=== PATIENT | female | born 1990 | race Caucasian/White ===

== ENCOUNTER 2025-01-24 15:03 | Emergency (ER) | payer MEDICARE, SELFPAY ==
--- OUTSIDE RECORDS SUMMARY | 2024-12-17 00:30 | XMS_ITS | Encounter Summary ---
Author Organization [facility] er Address [address] [place] [id number] Care Team Providers Care Supply Coordinator Name Role Phone None, Pcp Primary Care Provider Unavailabl e Reason for Visit * Reason Comments Fall Head Injury Encounter Details Date Type Department Care Team (Late st Contact Info) Description 12/17/2024 12:30 AM CDT - 12/17/2024 1:00 AM CDT Emergency [facility] Emergency Room [address] [place] [id number] Kvng Mensah MD [address] [place] [address] [id number] Closed head injury, initial encounter (Primary Dx) Discharge Disposition: Home or Self Care Social History Tobacco Use Types Packs/Day Years Used Date Smoking Tobacco: Never Smokeless Tobacco: Never Alcohol Use Standard Drinks/Week Comments Yes 30 (1 standard drink = 0.6 oz pure alcohol) 2 months ago started drinking daily PHQ-2 Answer Date Recorded PHQ-9 Total Score 0 12/03/2024 Comments No Sex and Gender Information Value Date Recorded Sex Assigned at Not on file Legal Sex Female 2:33 PM CDT Gender Identity Not on file Sexual Orientation Not on file documented as of this encounter Last Filed Vital Signs Vital Sign Reading Time Taken Comments Blood Pressure 117/76 12/17/2024 12:23 AM CDT Pulse 80 12/17/2024 12:23 AM CDT Temperature 37.2 C (99 F) 12/17/2024 12:23 AM CDT Respiratory Rate 16 12/17/2024 12:23 AM CDT Oxygen Saturation 99% 12/17/2024 12:23 AM CDT Inhaled Oxygen Concentration - - Weight 68.6 kg (151 lb 3.8 oz) 12/17/2024 12:23 AM CDT Height - - Body Mass Index 28.58 12/08/2024 6:31 PM CDT documented in this encounter Discharge Instructions * Discharge Instructions* Kvng Mensah MD - 12/17/2024 12:55 AM CDT If you develop any new weakness, numbness, or confusion make sure to seek emergent care to be reevaluated. At this time recommend you get plenty of rest. * Attachments The following attachments cannot be sent through Care Everywhere. * Head Injury Adult Ibsm-lg-Chai (Panamanian) documented in this encounter Medications at Time of Discharge albuterol HFA (PROVENTIL HFA;VENTOLIN HFA) 108 (90 Base) MCG/ACT inhaler Inhale 2 puffs cyclobenzaprine (FLEXERIL) 10 MG tablet Take 1 tablet (10 mg total) by mouth 07/24/2024 escitalopram (LEXAPRO) 10 MG tablet Take 1 tablet (10 mg total) by mouth 04/14/2024 Lurasidone HCl 60 MG tablet Take 60 mg by mouth 10/28/2024 nystatin (MYCOSTATIN) 640435 UNIT/GM powder Apply topically 04/26/2024 ondansetron ODT (ZOFRAN-ODT) 4 MG dispersible tablet Take 1 tablet (4 mg total) by mouth 09/20/2024 OXcarbazepine (TRILEPTAL) 150 MG tablet Take 1 tablet (150 mg total) by mouth 10/28/2024 Semaglutide, 1 MG/DOSE,-Diabetes (Ozempic, 1 MG/DOSE,) 4 MG/3ML solution pen-injector Inject under the skin senna-docusate (PERICOLACE) 8.6-50 MG per tablet Take 1 tablet by mouth traZODone (DESYREL) 50 MG tablet Take 1 tablet (50 mg total) by mouth 10/28/2024 triamcinolone (KENALOG) 0.1 % cream Apply 1 Application topically 03/06/2024 valACYclovir (VALTREX) 1 g tablet Take 1 tablet (1,000 mg total) by mouth 03/08/2024 documented as of this encounter ED Notes * Abeba Morris RN - 12/17/2024 12:26 AM CDT 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 She held onto the railing but swung around and hit her head on the cement wall of the facility. Patient reports that this happened at 1400 and she had slurred speech and a headache for 4 to 5 hours after hitting her head. She reports no LOC. Historically, she suffered a TBI in 2021. * Kvng Mensah MD - 12/16/2024 11:43 PM CDT HPI Chief Complaint Patient presents with ??? Fall ??? Head Injury HPI Monica Ogden is a 35-year-old female with a history of a traumatic brain injury who presents emerged from today for a head injury. She was going to work today when she was walking to work and she stepped in some grass that was wetand then she was walking down the stairs and she slipped. She grabbed onto the railing. In the swung her around and she hit her head against the wall. She did not fall down and go down many steps of stairs. She did not lose consciousness. She had a headache after that and then she had some changes in her speech as how she described it as well as a few episodes of vomiting and she was seeing some spots in her vision. This lasted for about 4 to 5 hours. She currently does not have any symptoms and she is feeling much better. She is coming here because she is filing for [employer]. She denies any altered mental status. She is not on any blood thinners. She otherwise has no other high risk factors for intracranial hemorrhage. Patient History Patient History Allergies Allergen Reactions ??? Aripiprazole Rash, Swelling and Unknown Other Reaction(s): Rash, Swelling/Edema ??? Lamotrigine Nausea And Vomiting, Rash and Swelling Other Reaction(s): Edema, GI intolerance, Unknown Other Reaction(s): Rash, Swelling/Edema ??? Miconazole Swelling, Rash and Unknown Other Reaction(s): Rash, Swelling/Edema ??? Sertraline Anxiety, Hallucinations and Other (see comments) Other Reaction(s): Agitation Mom reports she became psychotic on zoloft Anxiety, hallucinations ??? Tioconazole Hallucinations Past Medical History: Diagnosis Date ??? Depression ??? Suicidal behavior with attempted self-injury (HCC) Past Surgical History: Procedure Laterality Date ??? HYSTERECTOMY ??? SLEEVE GASTROPLASTY 2022 ??? TUBAL LIGATION 2016 No family history on file. Social History Tobacco Use ??? Smoking status: Never ??? Smokeless tobacco: Never Vaping Use ??? Vaping status: Every Day ??? Substances: THC Substance Use Topics ??? Alcohol use: Yes Alcohol/week: 30.0 standard drinks of alcohol Types: 30 Shots of liquor per week Comment: 2 months ago started drinking daily ??? Drug use: Yes Types: Marijuana Comment: Smoked more than usual today and yesterday Physical Exam ED Triage Vitals [12/17/24 0023] Temp Heart Rate Resp BP 37.2 ??C (99 ??F) 80 16 117/76 SpO2 Temp Source Heart Rate Source Patient Position 99 % Temporal Monitor Sitting BP Location FiO2 (%) Weight Right arm -- 68.6 kg (151 lb 3.8 oz) Body mass index is 28.58 kg/m??. Physical Exam Vitals and nursing note reviewed. Constitutional: General: She is not in acute distress. Appearance: Normal appearance. HENT: Head: Normocephalic. Nose: Nose normal. Mouth/Throat: Mouth: Mucous membranes are moist. Eyes: Pupils: Pupils are equal, round, and reactive to light. Cardiovascular: Rate and Rhythm: Normal rate. Pulmonary: Effort: Pulmonary effort is normal. Musculoskeletal: Cervical back: Normal range of motion. Skin: General: Skin is warm and dry. Neurological: General: No focal deficit present. Mental Status: She is alert and oriented to person, place, and time. Cranial Nerves: Cranial nerves 2-12 are intact. Sensory: Sensation is intact. Motor: Motor function is intact. Coordination: Coordination is intact. Gait: Gait is intact. Psychiatric: Mood and Affect: Mood normal. Behavior: Behavior normal. Behavior is cooperative. Thought Content: Thought content normal. Judgment: Judgment normal. Trevor Coma Scale Score: 15 Procedures Labs Reviewed - No data to display ED Course & MDM Patient is a 34-year-old female who presents to the emerged from today with complaints of a head injury. She does have a history of TBI. On examination her neurologic examination is unremarkable. Shedid have some concerning symptoms with some vomiting as well as a headache and she did note some slurred speech but does have a history of TBI. We did some shared decision-making about getting a CT scan of the head or not. We discussed the risks of missing a intracranial hemorrhage. This include worsening deficits and could lead to or serious injury. She is aware of this. I do think it is less likely as she hit her head almost 11 hours ago and she is feeling much better at this time. Her main reason for coming in [facility] was to have workmen's comp. At this time I do not think any additional workup is needed and she is otherwise well-appearing and with request to go home. I think this is reasonable. Patient was discharged home with strict return precautions that if any new symptoms occur such as new weakness, numbness, tingling, or neurologic deficits then she will come back to [facility] from and for reevaluation Medical Decision Making Follow Up No follow-up provider specified. Patient's Medications New Prescriptions No medications on file Previous Medications ALBUTEROL HFA (PROVENTIL HFA;VENTOLIN HFA) 108 (90 BASE) MCG/ACT INHALER Inhale 2 puffs CYCLOBENZAPRINE (FLEXERIL) 10 MG TABLET Take 1 tablet (10 mg total) by mouth ESCITALOPRAM (LEXAPRO) 10 MG TABLET Take 1 tablet (10 mg total) by mouth LURASIDONE HCL 60 MG TABLET Take 60 mg by mouth NYSTATIN (MYCOSTATIN) 999544 UNIT/GM POWDER Apply topically ONDANSETRON ODT (ZOFRAN-ODT) 4 MG DISPERSIBLE TABLET Take 1 tablet (4 mg total) by mouth OXCARBAZEPINE (TRILEPTAL) 150 MG TABLET Take 1 tablet (150 mg total) by mouth SEMAGLUTIDE, 1 MG/DOSE,-DIABETES (OZEMPIC, 1 MG/DOSE,) 4 MG/3ML SOLUTION PEN- INJECTOR Inject under the skin SENNA-DOCUSATE (PERICOLACE) 8.6-50 MG PER TABLET Take 1 tablet by mouth TRAZODONE (DESYREL) 50 MG TABLET Take 1 tablet (50 mg total) by mouth TRIAMCINOLONE (KENALOG) 0.1 % CREAM Apply 1 Application topically VALACYCLOVIR (VALTREX) 1 G TABLET Take 1 tablet (1,000 mg total) by mouth Modified Medications No medications on file Discontinued Medications No medications on file Discharge Instructions None ED COURSE and CLINICAL IMPRESSION Clinical Impressions as of 12/17/2453 Closed head injury, initial encounter Disposition: Data Unavailable Kvng Mensah MD 12/17/2452 documented in this encounter Plan of Treatment Not on file documented as of this encounter Visit Diagnoses Diagnosis Closed head injury, initial encounter- Primary documented in this encounter Care Teams Supply Coordinator Relationship Specialty Start Date End Date None, Pcp [address] [place] [id number] PCP - General Seed Expert 12/03/24 documented as of this encounter
[2025-01-24 15:31] VITALS: BP 103/69; PULSE 77; RESP 16; TEMP 36.9; O2SAT 100; BMI 29.3
--- NOTE | 2025-01-24 16:08 | ED.ALLEREA ---
HPI - Allergic Reaction General Date Seen: 01/24/25 Chief complaint: Allergic Reaction Stated complaint: Swollen hands Time Seen by Provider: 01/24/25 16:07 Source: patient and RN notes reviewed Mode of arrival: ambulatory Limitations: no limitations History of Present Illness HPI narrative: Monica is a very pleasant 34-year-old female with history of gastric sleeve who comes to the emergency room for evaluation of a swelling of her face, arms and hands. Patient noted to have had laser tattoo removal yesterday. She notes this was at 1400 hours and by 1800 hours she had a lot of swelling and redness around the tattoos that were targeted. She is very worried that she actually has an infection. Notes that she did have 2 different spots as she has a cat and did have some drainage from 1 of those areas. She has not had fever or chills. She denies difficulty swallowing or difficulty breathing. She did not want to take Benadryl because it makes her sleepy. 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 She feels like the areas of concern are very warm to the touch. States that she cannot take ibuprofen secondary to her gastric sleeve. Related Data Home Medications ?Medication ?Instructions ?Recorded ?Confirmed lurasidone 20 mg tablet (Latuda) 20 mg PO DAILY 01/24/25 01/24/25 oxcarbazepine 150 mg tablet 150 mg PO DAILY 01/24/25 01/24/25 trazodone 50 mg tablet 50 mg PO DAILY 01/24/25 01/24/25 Previous Rx's ?Medication ?Instructions ?Recorded cephalexin 500 mg capsule 500 mg PO TID #15 caps 01/24/25 Allergies Allergy/AdvReac Type Severity Reaction Status Date / Time sertraline Allergy Unknown Verified 01/24/25 15:26 Review of Systems Status of ROS Reports: 6 or more systems reviewed and unremarkable except as noted in History and below [facility] Social History Smoking Status: Never smoker How often do you have a drink containing alcohol: never AUDIT-C Alcohol total score: 0 Non-prescribed substance use: marijuana (any form) Exam Narrative: Exam Narrative: Alert and oriented. Very well-spoken. I do not note any significant facial swelling. Lips are without edema. Speech is normal. No respiratory distress. Examination of the arms and hands do show surrounding erythema of the targeted tattoos. The erythema is absent between the attached to sit and absent at the tattoos not targeted by the laser. Mildly warm to the touch. I do not note any evidence of compartment syndrome. Patient is able to flex and extend fingers without difficulty. The edema on the back of the left hand is greater than the right. Const: Vital Signs, click to edit/add: Vital Signs - 24 hr 01/24/25 15:31 Temperature 98.5 F Pulse Rate [Pulse Oximeter] 77 Respiratory Rate 16 Blood Pressure [Ri ght Upper Arm] 103/69 Pulse Oximetry 100 Oxygen Delivery Me thod Room Air Documenting provider has reviewed patient's vital signs: yes Course Course ED Course: Differential diagnosis includes but is not limited to laser reaction, infection, compartment syndrome, necrotizing fasciitis. At this time given the absence of erythema around the tattoos that were not targeted, lack of fever, ability to move hands without difficult., no firmness noted on the volar surface of the arms, I do think we can rule out compartment syndrome and necrotizing fasciitis. I do think this most likely represents a laser reaction. Vital Signs Vital signs: Initial Vital Signs Temperature 98.5 F 01/24/25 15:31 Temperature Source Temporal Artery Scan 01/24/25 15:31 Pulse Rate 77 01/24/25 15:31 Pulse Rhythm Regular 01/24/25 15:31 Pulse Strength 3+ Normal 01/24/25 15:31 Respiratory Rate 16 01/24/25 15:31 Blood Pressure 103/69 01/24/25 15:31 Blood Pressure Mean 80 01/24/25 15:31 Blood Pressure Position Sitting 01/24/25 15:31 Pulse Oximetry 100 01/24/25 15:31 Oxygen Delivery Method Room Air 01/24/25 15:31 Vital Signs Temperature 98.5 F 01/24/25 15:31 Pulse Rate 77 01/24/25 15:31 Respiratory Rate 16 01/24/25 15:31 Blood Pressure 103/69 01/24/25 15:31 Pulse Oximetry 100 01/24/25 15:31 Oxygen Delivery Method Room Air 01/24/25 15:31 Temperature 98.5 F 01/24/25 15:31 Pulse Rate 77 01/24/25 15:31 Respiratory Rate 16 01/24/25 15:31 Blood Pressure 103/69 01/24/25 15:31 Pulse Oximetry 100 01/24/25 15:31 Oxygen Delivery Method Room Air 01/24/25 15:31 MDM - Allergic Reaction MDM Narrative Medical decision making narrative: 1. Laser Reaction -there may be a small element of cellulitis in a few areas of superficial scratch with mildly increased erythema, but most likely this represents laser reaction given the worry regarding infection however will use Keflex 500 mg t.i.d. for 5 days for treatment. Would also recommend Zyrtec 5-10 mg twice daily as an antihistamine. Patient may use Tylenol as needed for discomfort. Also a 1 time dose of ibuprofen here in there would be acceptable as long as this is not routine. Would however recommend omeprazole 20 mg daily if she elects to do that. 2. Disposition - did provide a note for no work today and tomorrow. Have instructed patient to try to keep her arms elevated. 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 Discharge Plan Discharge Clinical Impression: Exposure to laser radiation, sequela Patient Disposition: Home, Self-Care Condition: Unchanged Additional Instructions: Keflex as infection prophylaxis start zyrtec 5-10mg twice daily return/seek medical attention for worsening symptoms and as needed Note for no work today or tomorrow IF needed, you may take a dose of omeprazole for stomach protection and take ibuprofen for discomfort. This should be done sparingly Prescriptions: New cephalexin 500 mg capsule 500 mg PO TID Qty: 15 0RF No Action trazodone 50 mg tablet 50 mg PO DAILY oxcarbazepine 150 mg tablet 150 mg PO DAILY lurasidone [Latuda] 20 mg tablet 20 mg PO DAILY Rx Instructions: must administer with food (at least 350 calories) Stand Alone Forms: [employer] Info Instructions
--- OUTSIDE RECORDS SUMMARY | 2025-01-24 16:32 | XMS_ITS | Encounter Summary ---
Author Organization [facility] er Address [address] [place] [address] Care Team Providers Care Merchandising Stock Associate Name Role Phone None, Pcp Primary Care Provider Unavailabl e Encounter Details Date Type Department Care Team (Latest Contact Info) Description 12/17/2024 Travel Social History Tobacco Use Types Packs/Day Years [...] on file documented as of this encounter Plan of Treatment Not on file documented as of this encounter Visit Diagnoses Not on filedocumented in this encounter Care Teams Merchandising Stock Associate Relationship Specialty Start Date End Date None, Pcp [address] [facility] [place] [place] [phone] PCP - General Vegetable Tester 12/03/24 documented as of this encounter
--- OUTSIDE RECORDS SUMMARY | 2025-01-24 16:32 | XMS_ITS | Clinical Summary ---
Author Organization [facility] Address [address] [place] [address] Care Team Providers Care Certified Teacher Assistant Name Role Phone None Reported, Pcp Primary Care Provider Unavail able Source Comments Patient records contain information from all sites at [facility]. For routine questions regarding patient records, call [phone] during business hours, M-F 8:00 AM - 5:00 PM Central Time. Record requests for emergency care only can be directed to [phone] at any time.[facility] Allergies Active Allergy Reactions Criticality Noted Date Comments Aripiprazole Rash,Swelling High 09/10/2013 Lamotrigine Rash,Nausea And Vomi ting,Swelling,GI intolerance High 09/10/2013 Miconazole Rash,Swelling High 09/10/2013 Tioconazole Hallucinations Medium 02/13/2020 Sertraline Anxiety,Hallucinations High 05/23/2022 Medications * This document contains information received from the source organization and may not represent a complete record from that organization. acetaminophen (TYLENOL) 500 mg tablet Take 500-1,000 mg by mouth every 6 (six) hours as needed for pain. 11/25/19 23 Active albuterol 90 mcg/actuation inhaler Inhale 2 puffs every 4 (four) hours as needed. Active Qulipta 60 mg tablet tablet Take 60 mg by mouth daily. 07/19/19 24 Active escitalopram (LEXAPRO) 5 mg tablet Take 5 mg by mouth daily. Active ferrous sulfate 325 mg (65 mg iron) tablet Take 325 mg by mouth daily. Active lurasidone (LATUDA) 80 mg tablet Take 80 mg by mouth at bedtime. 06/22/19 24 Active ondansetron ODT (ZOFRAN-ODT) 4 mg disintegrating tablet Dissolve 4 mg in the mouth every 8 (eight) hours as needed for nausea or vomiting. 08/03/19 Active OXcarbazepine (TRILEPTAL) 150 mg tablet Take 150 mg by mouth 2 (two) times a day. Active SUMAtriptan (IMITREX) 50 mg tablet Take 50 mg by mouth as needed for migraine. 06/19/19 Active topiramate (TOPAMAX) 25 mg tablet Take 25 mg by mouth 2 (two) times a day. 09/02/19 23 Active traZODone (DESYREL) 50 mg tablet Take 25 mg by mouth at bedtime. Active cetirizine (ZyrTEC) 10 mg tablet Take 10 mg by mouth daily. 05/04/19 Active cholecalciferol (Vitamin D3) 125 mcg (5,000 Unit) capsule Take 125 mcg by mouth daily. 04/10/20 Active RANITIDINE HCL ORAL Take 150 mg by mouth 2 (two) times a day. 08/02/19 Active phentermine (Adipex-P) 37.5 mg tablet Take 37.5 mg by mouth daily before morning meal. Active phentermine (Adipex-P) 37.5 mg capsule Take 37.5 mg by mouth daily before morning meal. Active ondansetron (Zofran) 4 mg tablet Take 4 mg by mouth every 6 (six) hours as needed for vomiting or nausea. Active Nyamyc 100,000 unit/gram powder Apply 1 Application topically 2 (two) times a day. 04/26/20 Active montelukast (Singulair) 10 mg tablet Take 10 mg by mouth at bedtime. 03/18/20 Active Emgality Pen 120 mg/mL injection Inject 120 mg under the skin every 30 (thirty) days. 03/05/20 Active fluconazole (Diflucan) 150 mg tablet Take 150 mg by mouth every 7 (seven) days. For 2 doses 02/26/20 Active phentermine (Adipex-P) 37.5 mg tablet Take 37.5 mg by mouth daily before morning meal. 06/27/19 Active triamcinolone (Kenalog) 0.1 % cream Apply 1 Application topically 2 (two) times a day as needed for irritation or rash. To Back 03/06/20 24 Active valACYclovir (Valtrex) 1000 mg tablet Take 1 tablet by mouth 3 (three) times a day with meals. 03/08/20 24 Active escitalopram (Lexapro) 10 mg tablet Take 1 tablet by mouth daily. 04/14/20 24 Active Encounters * This document contains information received from the source organization and may not represent a complete record from that organization. Date Type Department Care Team Description 12/03/2024 5:20 PM CDT Office Visit [facility] at [address] [place] [address] Maite Nails, L.P.N. Procedure And Treatment Not Carried Out Due To Patient Leaving Prior To Being Seen By Health Care Provider (Primary Dx) 12/03/2024 Nurse Triage Department of Family Medicine, [facility], in [place], [place] [address] [place] [address] Lara Wilkins, RLindsayN. COVID test request; Diarrhea; Flu Symptoms from Last 3 Months Social History Tobacco Use Types Packs/Day Years Used Date Smoking Tobacco: Never Smokeless Tobacco: Never Tobacco Cessation:Counseling Given: Not Answered Alcohol Use Standard Drinks/Week Comments Not Currently 0 (1 standard drink = 0.6 oz pur e alcohol) [facility] Utilities Answer Date Recorded In the past 12 months has [employer] gas, oil, or water [employer] threatened to shut off services in your home? No 07/15/2024 Hunger Vital Sign Answer Date Recorded Within the past 12 months, y ou worried that your food would run out before you got the money to buy more. Never true 07/16/19 25 Within the past 12 months, t he food you bought just didn't last and you didn't have money to get more. Never true 07/15/2024 PRAPARE - Transportation Answer Date Re corded In the past 12 months, has l ack of transportation kept you from medical appointments or from getting medications? No 06/29 In the past 12 months, has l ack of transportation kept you from meetings, work, or from getting things needed for daily living? No 07/15/2024 Housing Stability Answer Date Recorded What is your living situation today? I have a [facility] place to live 07/15/2024 Comments No Sex and Gender Information Value Date Recorded Sex Assigned at Female 07/15/2024 5:27 PM CDT Legal Sex Female 10:10 PM CDT Gender Identity Female 07/15/2024 5:27 PM CDT Sexual Orientation Not on file Last Filed Vital Signs Vital Sign Reading Time Taken Comments Blood Pressure 100/65 08/09/2024 12:00 AM CDT Pulse 98 08/09/2024 12:00 AM CDT Temperature 36.6 C (97.9 F) 08/08/2024 7:48 PM CDT Respiratory Rate 16 08/09/2024 12:43 AM CDT Oxygen Saturation 99% 08/09/2024 12:00 AM CDT Inhaled Oxygen Concentration - - Weight 73.3 kg (161 lb 9.6 oz) 06/29/2024 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 Height - - Body Mass Index - - Plan of Treatment Health Maintenance Due Date Last Done Comments Cervical/Vaginal Cancer Screening 1992 HIV Screening 1992 Hepatitis C Screening 1992 IPV Vaccines (4 of 4 - 4-dose series) 1996 03/08/1993, 1992, 1992 DTaP,Tdap,and Td Vaccines (8 - Td or Tdap) 07/20/2023 07/19/2013, 12/28/2005, 12/08/1997, Additional history exists Depression Screening (Annual PHQ-2) 05/01/2024 COVID-19 Vaccine ( season) 2024 09/04/2020, 07/30/2020 Influenza Vaccine (#1) 2024 3, 01/14/2009, 03/04/2008, Additional history exists Glucose Test for Med Monitoring 12/08/2025 12/08/2024, 08/14/2024, 2024, Additional history exists Hepatitis B Vaccines Completed 03/08/1993, 1992, 1992 HPV Vaccines Completed 04/04/2007, 10/31, 09/15/2006 Pneumococcal vaccine (0-49 years) Aged Out No longer eligible based on patient's age to complete this topic Procedures Procedure Name Priority Date/Time Associated Diagnosis Comments BASIC METABOLIC PANEL, S/P STAT 08/08/2024 8:53 PM CDT from Last 3 Months or Most Recently Relevant to Health Maintenance Insurance [facility] Care Teams Certified Teacher Assistant Relationship Specialty Start Date End Date None Reported, Pcp PCP - General Family Medicine 12/25/24
--- OUTSIDE RECORDS SUMMARY | 2025-01-24 16:32 | XMS_ITS | Encounter Summary ---
Author Organization [facility] er Address [address] [place] [address] Care Team Providers Care Contact Lens Cutter Name Role Phone None, Pcp Primary Care Provider Unavailabl e Encounter Details Date Type Department Care Team (Latest Contact Info) Description 12/16/2024 Travel Social History Tobacco Use Types Packs/Day [...] on filedocumented in this encounter Care Teams Contact Lens Cutter Relationship Specialty Start Date End Date None, Pcp [address] [facility] [place] [address] PCP - General Student Services Representative 12/03/24 documented as of this encounter
--- OUTSIDE RECORDS SUMMARY | 2025-01-24 16:32 | XMS_ITS | Encounter Summary ---
Author Organization [facility] er Address [address] [place] [address] Care Team Providers Care Certified Ski Patroller Name Role Phone None, Pcp Primary Care Provider Unavailabl e Encounter Details Date Type Department Care Team (Late st Contact Info) Description 12/03/2024 Results Follow-Up Acute Care [address] [place] [id number] Andry Elizabeth PA-C [address] [place] [id number] Covid-19, [place] ID Now, PCR Social History Tobacco Use Types Packs/Day Years Used Date Smoking Tobacco: Never Smokeless Tobacco: Never Alcohol Use Standard Drinks/Week Comments Not Currently 0 (1 standard drink = 0.6 oz pur e alcohol) social PHQ-2 Answer Date Recorded PHQ-9 Total Score [...] Diagnoses Not on filedocumented in this encounter Additional Health Concerns Infection Onset Date Last Indicated Resolved Time COVID-19 Rule Out 12/03/2024 12/03/2024 12/03/2024 3:28 PM CDT documented as of this encounter Care Teams Certified Ski Patroller Relationship Specialty Start Date End Date None, Pcp [address] [place] [address] PCP - General Furniture Upholsterer 12/03/24 documented as of this encounter
--- OUTSIDE RECORDS SUMMARY | 2025-01-24 16:32 | XMS_ITS | Clinical Summary ---
Author Organization [facility] Address [address] [place] [address] Care Team Providers Care Private Advisor Name Role Phone None, Pcp Primary Care Provider Unavailabl e Allergies Active Allergy Reactions Criticality Noted Date Comments Aripiprazole Rash,Swelling,Unknown High 09/10/2013 Other Reaction(s): Rash, Swelling/Edema Lamotrigine Nausea And Vomiting,Rash,Swelling High 09/10/2013 Other Reaction(s): Edema, GI intolerance, Unknown Other Reaction(s): Rash, Swelling/Edema Miconazole Swelling,Rash,Unknown High 09/10/2013 Other Reaction(s): Rash, Swelling/Edema Sertraline Anxiety,Hallucinatio ns,O ther (see comments) High 09/10/2013 Other Reaction(s): Agitation Mom reports she became psychotic on zoloft Anxiety, hallucinations Tioconazole Hallucinations Medium 02/13/2020 Medications albuterol HFA (PROVENTIL HFA;VENTOLIN HFA) 108 (90 Base) MCG/ACT inhaler Inhale 2 puffs Activ e cyclobenzaprine (FLEXERIL) 10 MG tablet Take 1 tablet (10 mg total) by mouth 5 08/16/19 26 Active escitalopram (LEXAPRO) 10 MG tablet Take 1 tablet (10 mg total) by mouth 4 Active Lurasidone HCl 60 MG tablet Take 60 mg by mouth 5 Active nystatin (MYCOSTATIN) 581771 UNIT/GM powder Apply topically 4 Active ondansetron ODT (ZOFRAN-ODT) 4 MG dispersible tablet Take 1 tablet (4 mg total) by mouth 5 Active OXcarbazepine (TRILEPTAL) 150 MG tablet Take 1 tablet (150 mg total) by mouth 5 Active Semaglutide, 1 MG/DOSE,-Diabete s (Ozempic, 1 MG/DOSE,) 4 MG/3ML solution pen-injector Inject under the skin Active senna-docusate (PERICOLACE) 8.6-50 MG per tablet Take 1 tablet by mouth Active traZODone (DESYREL) 50 MG tablet Take 1 tablet (50 mg total) by mouth 5 Active triamcinolone (KENALOG) 0.1 % cream Apply 1 Application topically 4 Active valACYclovir (VALTREX) 1 g tablet Take 1 tablet (1,000 mg total) by mouth 4 Active Active Problems Problem Noted Date Diagnosed Date S/P laparoscopic sleeve gastrectomy 12/07/2022 PTSD (post-traumatic stress disorder) 08/01/2022 Binge eating disorder 08/01/2022 Bipolar 1 disorder 05/23/2022 Arthritis 07/28/2021 Diverticulosis of large inte cynthia without perforation or abscess without bleeding 11/25/2020 PILAR (obstructive sleep apnea) 11/18/2020 Bilateral carpal tunnel syndrome 08/12/2020 Vitamin D deficiency 04/14/2020 Intractable chronic migraine without aura and with status migrainosus 01/15/2016 GERD (gastroesophageal reflux disease) 4 Allergic rhinitis 02/28/2013 Overview (12/03/2024): Severity:0 Samm Gutierrez D.O. Bipolar I disorder, single manic episode 010 Overview (12/03/2024): Severity:0 Samm Gutierrez D.O. Anxiety and depression 09/23/2008 Attention deficit disorder with hyperactivity Mild intermittent asthma without complication Overview (12/03/2024): Severity:0 Batsheva Rogers R.N. Encounters Date Type Department Care Team Description 12/17/2024 12:30 AM CDT - 12/17/2024 1:00 AM CDT [facility] [address] [place] [phone] Kvng Mensah MD Closed head injury, initial encounter (Primary Dx) Discharge Disposition: Home or Self Care 12/17/2024 Travel 12/16/2024 Travel 12/08/2024 6:33 PM CDT - 12/09/2024 7:56 AM CDT [facility] [address] [place] [address] Vince Blanco MD Renelt, MD Rodrick Banda Steven C, MD Suicidal behavior without attempted self-injury (Primary Dx) Discharge Disposition: Short Term Care Facility 12/08/2024 Travel 12/03/2024 3:00 PM CDT Office Visit Acute Care [address] [place] [phone] Andry Elizabeth PA-C Viral gastroenteritis (Primary Dx); Encounter for screening for severe acute respiratory syndrome coronavirus 2 (SARS-CoV-2) infection 12/03/2024 Results Follow-Up [facility] [address] [place] [address] [phone] Andry Elizabeth PA-C Covid-19, Silveira ID Now, PCR from Last 3 Months Immunizations Immunization Administration Dates Next Due COVID-19, mRNA, LNP-S, PF, 3 0mcg/0.3mL dose Pfizer 07/30/2020 DTP 06/15/1994, 3,1992,10/02 DTaP 5 12/08/1997 HPV, Quadrivalent 04/04/2007,11/27/2006,09/16/19 07 Hepatitis B 03/08/1993,1992,1992 Hib (PRP-T) 06/15/1994, 3,1992,10/09 IPV 03/08/1993,1992,1992 Influenza, Split Virus, Triv alent, Preservative 02/08/2013,01/14/2009,03/04/2008,03/29,03/12/2002,04/09/2001,03/06/2001 Influenza, Trivalent, PF 02/08/2013,12/30,03/04/2008,03/29,03/12/2002,04/09/2001,03/06/2001 MMR 12/08/1997,06/15/1996,06/15/1994 Meningococcal MCV4P 01/23/2006 OPV 12/08/1997, 3,1992,10/02 Tdap 07/19/2013, 6,06/15/1994,03/08,1992,1992 Social History Tobacco Use Types Packs/Day Years Used Date Smoking Tobacco: Never Smokeless Tobacco: Never Tobacco Cessation:Counseling Given: Not Answered Alcohol Use Standard Drinks/Week Comments Yes 30 (1 standard drink = 0.6 oz pure alcohol) 2 months ago started drinking daily PHQ-2 Answer Date Recorded PHQ-9 Total Score 0 12/03/2024 Comments No Sex and Gender Information Value Date Recorded Sex Assigned at Not on file Legal Sex Female 2:33 PM CDT Gender Identity Not on file Sexual Orientation Not on file Last Filed [...] 3.8 oz) 12/17/2024 12:23 AM CDT Height 154.9 cm (5' 1) 12/08/2024 6:31 PM CDT Body Mass Index 28.58 12/08/2024 6:31 PM CDT Plan of Treatment Health Maintenance Due Date Last Done Comments Pap Smear 1992 Asthma: Control Test 1997 Medicare Annual Wellness Vis it (AWV) 2010 Pneumococcal Vaccine: Pediat rics (0 to 5 Years) and At-Risk Patients (6 to 49 Years) (1 of 2 - PCV) 08/11/2011 DTaP,Tdap,and Td Vaccines (8 - Td or Tdap) 07/20/2023 07/19/2013, 12/28/2005, 12/08/1997, Additional history exists COVID-19 Vaccine (2024-2 6 season) 2024 09/04/2020, 07/30/2020 Influenza Vaccine (#1) 2024 3, 02/08/2013, 01/14/2009, Additional history exists HPV Vaccines Completed 04/04/2007, 10/31, 09/15/2006 Procedures Procedure Name Priority Date/Time Associated Diagnosis Comments , URINE STAT 12/08/2024 8:23 PM CDT RAPID DRUG SCREEN, URINE STAT 12/08/2024 8:23 PM CDT URINALYSIS WITH REFLEX MICROSCOPIC STAT 12/08/2024 8:23 PM CDT ESTIMATED GLOMERULAR FILTRATION RATE (EGFR) STAT 12/08/2024 7:04 PM CDT SALICYLATE LEVEL STAT 12/08/2024 7:04 PM CDT ACETAMINOPHEN LEVEL STAT 12/08/2024 7 :04 PM CDT COMPREHENSIVE METABOLIC PANEL STAT 12/08/2024 7:04 PM CDT TSH STAT 12/08/2024 7:04 PM CDT ETHANOL STAT 12/08/2024 7:04 PM CDT CBC STAT 12/08/2024 7:04 PM CDT COVID-19, SILVEIRA ID NOW, PCR Routine 12/03/2024 3:02 PM CDT Encounter for screening for severe acute respiratory syndrome coronavirus 2 (SARS-CoV-2) infection from Last 3 Months Results * (ABNORMAL) Rapid drug screen, urine (12/08/2024 8:23 PM CDT) Rapid Urine Drug Screen ----- 12/08/2024 8:26 PM CDT LABORATORY Comment: This is a screening test. Positive results should be considered presumptive and are sent to [employer] for confirmation. This test is not for legal purposes - only medical. Tetrahydrocannabinol DETECTED(A ) Not Detected 12/08/2024 8:42 PM [facility] Phencyclidine, Mec NOT DETECTED Not Detected 12/08/2024 8:42 PM [facility] Cocaine NOT DETECTED Not Detected 12/08/2024 8:42 PM [facility] Methamphetamine NOT DETECTED Not Detected 12/08/2024 8:42 PM [facility] Opiates NOT DETECTED Not Detected 12/08/2024 8:42 PM [facility] Amphetamines NOT DETECTED Not Detected 12/08/2024 8:42 PM [facility] Benzodiazepines NOT DETECTED Not Detected 12/08/2024 8:42 PM [facility] TCA, Urine NOT DETECTED Not Detected 12/08/2024 8:42 PM [facility] Methadone NOT DETECTED Not Detected 12/08/2024 8:42 PM [facility] Barbiturates NOT DETECTED Not Detected 12/08/2024 8:42 PM [facility] Oxycodone NOT DETECTED Not Detected 12/08/2024 8:42 PM [facility] Buprenorphine NOT DETECTED Not Detected 12/08/2024 8:42 PM [facility] Detectable Levels ----- 025 8:26 PM [facility] Comment: Amphetamines 500 ng/mL Barbiturates 200 ng/mL Buprenorphine 10 ng/ml Benzodiazepines 150 ng/mL Cocaine 150 ng/mL Methamphetamine 500 ng/mL Methadone 200 ng/mL Opiates 100 ng/mL Oxycodone 100 ng/mL Phencyclidine 25 ng/mL Tetrahydrocannabinol 50 ng/mL Tricyclic Antidepressant 300 ng/mL Urine (Urine, Clean Catch) 12/08/2024 8:23 PM CDT 12/08/2024 8:26 PM T us Vince Blanco MD LAB URINE ORDERABLES Chelsea l Result Performing Organization Address City/[facility]/ZIP Co de Phone Number LABORATORY [address] [place] [address] * , urine (12/08/2024 8:23 PM CDT) Test, Urine NEGATIVE Negative 12/08/2024 8:31 PM T LABORATORY Urine (Urine, Clean Catch) 12/08/2024 8:23 PM CDT 12/08/2024 8:26 PM CDT Vince Blanco MD LAB URINE ORDERABLES Chelsea l Result Performing Organization Address [facility] Co de Phone Number LAB[facility]ORY [address] [place] [address] * (ABNORMAL) Urinalysis with reflex microscopic (12/08/2024 8:23 PM CDT) Type CLEAN CATCH 12/08/2024 8:27 PM [facility] Color, Urine YELLOW YELLOW 12/08/2024 8:30 PM [facility] Clarity, Urine CLEAR CLEAR 12/08/2024 8:30 PM [facility] Glucose, Urine NEGATIVE NEGATIVE mg/dL 12/08/2024 8:30 PM [facility] Bilirubin, Urine NEGATIVE NEGATIVE 12/08/2024 8:30 PM [facility] Ketones, Urine TRACE(A) NEGATIVE mg/dL 12/08/2024 8:30 PM [facility] Specific [place], Urine 1.020 1.000 ->=1.030 12/08/2024 8:30 PM [facility] Blood, Urine NEGATIVE NEGATIVE 12/08/2024 8:30 PM [facility] pH, Urine 7.5(A) 5.0 - 7.0 12/08/2024 8:30 PM [facility] Protein, Urine NEGATIVE NEGATIVE-TRA CE mg/dL 12/08/2024 8:30 PM [facility] Urobilinogen, Urine 1.0 0.2 - 1.0 E.U./dL 12/08/2024 8:30 PM T LABORATORY Nitrite, Urine NEGATIVE NEGATIVE 12/08/2024 8:30 PM T LABORATORY Leukocytes, Urine NEGATIVE NEGATIVE 12/08/2024 8:30 PM CDT LABORATORY Urine (Urine, Clean Catch) 12/08/2024 8:23 PM CDT 12/08/2024 8:27 PM CDT Vince Blanco MD LAB URINE ORDERABLES Chelsea l Result Performing Organization Address [facility]/ZIP Co de Phone Number LABORATORY [address] [place] [phone] * Estimated Glomerular Filtration Rate (eGFR) (12/08/2024 7:04 PM CDT) Estimated Glomerular Filtration Rate (eGFR) >60 12/08/2024 7:24 PM T LABORATORY Comment: GFR calculated from serum creatinine value Chronic Kidney Disease less than 60 mL/min/1.73 m2 Kidney Failure less than 15 mL/min/1.73 m2 Note: effective 04/27/2022: 2020 CKD-EPI Equation used 12/08/2024 7:04 PM CDT 12/08/2024 7:04 PM CDT Vince Blanco MD LAB BLOOD ORDERABLES Chelsea l Result LABORATORY [address] [place] [address] * (ABNORMAL) CBC ([employer]) (12/08/2024 7:04 PM CDT) WBC 4.6 3.5 - 10.5 K/uL 12/08/2024 7:09 PM T LABORATORY RBC 3.78(L) 3.90 - 5.00 M/uL 12/08/2024 7:09 PM T LABORATORY Hemoglobin 11.8(L) 12.0 - 15.5 g/dL 12/08/2024 7:09 PM T LABORATORY Hematocrit 35.3 35.0 - 44.0 % 12/08/2024 7:09 PM [facility] Platelets 307 150 - 450 K/uL 12/08/2024 7:09 PM [facility] MCV 93.4 81.6 - 98.3 fL 12/08/2024 7:09 PM [facility] MCH 31.2 26.0 - 32.0 pg 12/08/2024 7:09 PM [facility] MCHC 33.4 32.0 - 36.0 g/dL 12/08/2024 7:09 PM [facility] RDW 13.5 11.9 - 15.5 % 12/08/2024 7:09 PM [facility] NRBC %, Automated 0 % 12/08/2024 7:09 PM [facility] NRBC Absolute, Autmated 0.00 K/uL 12/08/2024 7:09 PM [facility] Comment: 0-4 Days: 0.01 -0.02 >=5 Days: 0.00 Blood (Blood, Venous) 12/08/2024 7:04 PM CDT 12/08/2024 7:06 PM CDT us Vince Blanco MD LAB BLOOD ORDERABLES Chelsea polanco Result LABORATORY [address] [place] [address] * (ABNORMAL) TSH (12/08/2024 7:04 PM CDT) TSH, Sensitive 0.18(L) 0.46 - 4.68 mIU/L 12/08/2024 7:57 PM [facility] Comment: The results from this or any other diagnostic test should be used and interpreted only in the context of the overall clinical picture. Biotin levels in serum remain elevated for up to 24 hours after oral or intravenous biotin administration and may interfere with this assay to produce unreliable results. Heterophilic antibodies in serum or plasma samples may cause interference in immunoassays. Exposure to animal antigens, either in the environment or as part of treatment or imaging procedures, may have circulating anti-animal antibodies present. These antibodies may interfere with the assay reagents to produce unreliable results. Results which are inconsistent with clinical observations indicate the need for additional testing. Blood (Blood, Venous) 12/08/2024 7:04 PM CDT 12/08/2024 7:06 PM CDT Vince Blanco MD LAB BLOOD ORDERABLES Chelsea l Result Performing Organization Address [facility] Co de Phone Number LABORATORY [address] [place] [phone] * Ethanol (12/08/2024 7:04 PM CDT) Ethanol Lvl <10 mg/dL 12/08/2024 7:24 PM CDT LABORATORY Comment: 0-9 = Negative for Ethanol Consumption ~ ~ ~ ~ ~ ~ ~ ~ ~ ~ ~ ~ ~ ~ ~ ~ ~ ~ ~ ~ ~ ~ ~ ~ ~ ~ ~ ~ ~ ~ Legal limit of intoxication in [place] is 80 mg/dL (800 mcg/mL) Toxic concentration is dependent upon individual usage history. Toxic concentration: >ht=539 mg/dL (4,000 mcg/mL) This test is not for legal purposes - only medical. Blood (Blood, Venous) 12/08/2024 7:04 PM CDT 12/08/2024 7:06 PM CDT Vince Blanco MD LAB BLOOD ORDERABLES Chelsea l Result Performing Organization Address [facility] Co de Phone Number LABORATORY [address] [place] [phone] * Acetaminophen level (12/08/2024 7:04 PM CDT) Acetaminophen Level <10 mcg/mL 12/08/2024 7:24 PM CDT LABORATORY Comment: <30 Therapeutic 150-200 Possible Toxicity >200 Probable Toxicity NOTE: Reference ranges established for levels drawn 4 hours after acute ingestion. When time of ingestion is unknown, or in cases of chronic use, acetaminophen half-life may be a better indicator of toxicity. Acetaminophen Last Dose Date 12/07/24 12/08/2024 7:58 PM CDT LABORATORY Acetaminophen Last Dose Time midnight 12/08/2024 7:58 PM CDT LABORATORY Blood (Blood, Venous) 12/08/2024 7:04 PM CDT 12/08/2024 7:06 PM CDT Vince Blanco MD LAB BLOOD ORDERABLES Chelsea l Result Performing Organization Address [facility] Phone Number LABORATORY [address] [place] [phone] * Salicylate level (12/08/2024 7:04 PM CDT) Pathologist [facility] Salicylate Lvl <1 mg/dL 12/08/2024 7:24 PM CDT LABORATORY Comment: Negative <2 Negative 2-19 Therapeutic >30 Toxic >60 Lethal Salicylate Last Dose Date 12/07/2024 12/08/2024 7:58 PM CDT LABORATORY Salicylate Last Dose Time midnight 12/08/2024 7:58 PM CDT LABORATORY Blood (Blood, Venous) 12/08/2024 7:04 PM CDT 12/08/2024 7:06 PM CDT Vince Blanco MD LAB BLOOD ORDERABLES Chelsea l Result Performing Organization Address [facility] Co de Phone Number LABORATORY [address] [place] [address] * (ABNORMAL) Comprehensive metabolic panel (12/08/2024 7:04 PM CDT) Total Protein 7.2 6.3 - 8.2 g/dL 12/08/2024 7:24 PM [facility] Albumin, Serum 4.3 3.5 - 5.0 g/dL 12/08/2024 7:24 PM [facility] Total Bilirubin <0.7 0.1 - 1.0 mg/dL 12/08/2024 7:24 PM [facility] AST 19 8 - 43 U/L 12/08/2024 7:24 PM [facility] Alkaline Phosphatase 49 38 - 128 U/L 12/08/2024 7:24 PM [facility] ALT (SGPT) 11 0 - 34 U/L 12/08/2024 7:24 PM [facility] Sodium 137 135 - 145 mEq/L 12/08/2024 7:24 PM [facility] Potassium 3.9 3.5 - 5.1 mEq/L 12/08/2024 7:24 PM [facility] Chloride 102 98 - 107 mEq/L 12/08/2024 7:24 PM [facility] CO2 28 22 - 29 mmol/L 12/08/2024 7:24 PM [facility] BUN 11 5 - 25 mg/dL 12/08/2024 7:24 PM [facility] Creatinine 0.61 0.40 - 1.20 mg/dL 12/08/2024 7:24 PM [facility] Glucose 126(H) 70 - 100 mg/dL 12/08/2024 7:24 PM [facility] Calcium, Total,S 9.1 8.4 - 10.2 mg/dL 12/08/2024 7:24 PM [facility] Anion Gap 7 4 - 13 12/08/2024 7:24 PM [facility] Comment: The anion gap is calculated with the following formula: AGAP = Na ? (Cl + CO2). Fasting? No 12/08/2024 7:07 PM [facility] Blood (Blood, Venous) 12/08/2024 7:04 PM CDT 12/08/2024 7:06 PM CDT us Vince Blanco MD LAB BLOOD ORDERABLES Chelsea l Result LABORATORY [address] [place] [address] * Covid-19, Silveira ID Now, PCR (12/03/2024 3:02 PM CDT) Covid Source Nasal 12/03/2024 3:28 PM CDT [facility] Covid-19, ID Now PCR NEGATIVE Negative 12/03/2024 3:28 PM CDT [facility] Comment: Negative results should be treated as presumptive and, if inconsistent with clinical signs and symptoms or necessary for patient management, should be tested with an alternative molecular assay. Testing was performed using the Silveira ID NOW COVID-19 2.0 assay. Swab (Nasal) 12/03/2024 3:02 PM CDT 12/03/2024 3:10 PM CDT us Luis Angel Nuñez PA-C LAB MOLECULAR DIAGNOSTICS O RDERACULLEN Final Result [facility] [address] [place] [address] from Last 3 Months Insurance [facility]IC[facility] [employer]VANTAGE WORK COMP [facility] [id number] [place] [address] Care Teams Private Advisor Relationship Specialty Start Date End Date None, Pcp [address] [place] [address] PCP - General Blacking Wheel Tender 12/03/24
== END 2025-01-24 16:44 | disposition home or self-care (01) ==
PROVIDERS: Emergency Provider Family Medicine
DX: T78.40XA Allergy, unspecified, initial encounter (principal); W90.2XXA Exposure to laser radiation, initial encounter
CPT/HCPCS: 99283; 99284

== ENCOUNTER 2025-04-29 21:28 | Emergency (ER) | payer MEDICARE, SELFPAY ==
--- OUTSIDE RECORDS SUMMARY | 2025-04-29 21:30 | XMS_ITS | Clinical Summary ---
Author Organization [facility] er Address [address] [place] [address] Care Team Providers Care Occupational Health Technician Name Role Phone None, Pcp Primary Care Provider Unavailabl e Allergies Active AllergyReactionsCriticalityNoted DateCommentsAripiprazoleRash,Swelling, QenmggrMemg78/13/2014 Other Reaction(s): Rash, Swelling/Edema LamotrigineNausea And Vomiting,Rash,YdvvilprOliv34/13/2014 Other Reaction(s): Edema, GI intolerance, Unknown Other Reaction(s): Rash, Swelling/Edema MiconazoleSwelling,Rash,HztvzvfLeao96/13/2014 Other Reaction(s): Rash, Swelling/Edema SertralineAnxiety,Hallucinations,Other (see comments)High09/10/2013 Other Reaction(s): Agitation Mom reports she became psychotic on zoloft Anxiety, hallucinations VnyndofryutJhblygemefqukcBplcoe51/15/2020 Medications MedicationSigDispense QuantityRefillsLast FilledStart DateEnd DateStatus albuterol HFA (PROVENTIL HFA;VENTOLIN HFA) 108 (90 Base) MCG/ACT inhaler Inhale 2 puffsActive cyclobenzaprine (FLEXERIL) 10 MG tablet Take 1 tablet (10 mg total) by mouth/6Active escitalopram (LEXAPRO) 10 MG tablet Take 1 tablet (10 mg total) by mouth04/14/2024ctive Lurasidone HCl 60 MG tablet Take 60 mg by mouth5Active nystatin (MYCOSTATIN) 901695 UNIT/GM powder Apply lxkboiskq83/27/2024ctive ondansetron ODT (ZOFRAN-ODT) 4 MG dispersible tablet Take 1 tablet (4 mg total) by mouth5Active OXcarbazepine (TRILEPTAL) 150 MG tablet Take 1 tablet (150 mg total) by mouth5Active Semaglutide, 1 MG/DOSE,-Diabetes (Ozempic, 1 MG/DOSE,) 4 MG/3ML solution pen-injector Inject under the skinActive senna-docusate (PERICOLACE) 8.6-50 MG per tablet Take 1 tablet by mouthActive traZODone (DESYREL) 50 MG tablet Take 1 tablet (50 mg total) by mouth5Active triamcinolone (KENALOG) 0.1 % cream Apply 1 Application dsfsahxwy24/06/2024ctive valACYclovir (VALTREX) 1 g tablet Take 1 tablet (1,000 mg total) by mouth03/08/2024ctive Active Problems ProblemNoted DateDiagnosed DateS/P laparoscopic sleeve gijrqrnsbcj16/09/2023PTSD (post-traumatic stress disorder)08/01/2022inge eating ccoslhfo15/03/2023ipolar 1 wajtzsvg72/23/4641Fyfmtmvrb61/30/2022iverticulosis of large intestine without perforation or abscess without yqeedgof40/28/2021OSA (obstructive sleep apnea) 11/18/2020ilateral carpal tunnel /14/2021Vitamin D deficiency 04/14/2020Intractable chronic migraine without aura and with status migrainosus 01/15/2016GERD (gastroesophageal reflux disease)09/10/2013llergic rhinitis 02/28/2013 Overview (12/03/2024): Severity:0 Samm Gutierrez D.O. Bipolar I disorder, single manic aflxoqu2510/19/2009 Overview (12/03/2024): Severity:0 Samm Gutierrez D.O. Anxiety and kmxzyafvbx67/26/2009ttention deficit disorder with hyperactivity 09/23/2008Mild intermittent asthma without /25/2008 Overview (12/03/2024): Severity:0 Batsheva Rogers R.N. Immunizations ImmunizationAdministration DatesNext DueCOVID-19, mRNA, LNP-S, PF, 30mcg/0.3mL dose Ckstnn681DTP06/15/1994,03/08/1993,1992,1992DTaP 5 12/08/1997HPV, Pvanlclovlch91/05/2007,11/27/2006,09/15/2006Hepatitis B105/08/1992 ,1992,1992Hib (PRP-T)06/15/1994,03/08/1993,1992,1992IPV 03/08/1993,1992,1992Influenza, Split Virus, Trivalent, Preservative 02/08/2013,01/14/2009,03/04/2008,03/29/2005,03/12/2002,04/09/2001,03/06/2001 Influenza, Trivalent, PF02/08/2013,01/14/2009,03/04/2008,03/29/2005,03/12/2002, 04/09/2001,03/06/2001MMR12/08/1997,06/15/1996,06/15/1994Meningococcal MCV4P 01/23/2006OPV12/08/1997,03/08/1993,1992,1992Tdap07/19/2013, 12/28/2005,06/15/1994,03/08/1993,1992,1992 Social History Tobacco UseTypesPacks/DayYears UsedDateSmoking Tobacco: NeverSmokeless Tobacco: Never Tobacco Cessation:Counseling Given: Not Answered Alcohol UseStandard Drinks/ZiogHlvaocyqWsf18 (1 standard drink = 0.6 oz pure alcohol)2 months ago started drinking dailyPHQ-2AnswerDate RecordedPHQ-9 Total Bszgy534CommentsNoSex and Gender InformationValueDate Recorded Sex Assigned at BirthNot on fileLegal OrdQhgejp00/05/2025 2:33 PM CDTGender IdentityNot on fileSexual OrientationNot on file Last Filed Vital Signs Vital SignReadingTime TakenCommentsBlood Gssaucvv558/76012/17/2024 12:23 AM CDT Boczv2770/19/2025 12:23 AM LAUJvflxyjwcmx99.2 ??C (99 ??F)12/17/2024 12:23 AM CDTRespiratory Sbga738812/17/2024 12:23 AM CDTOxygen Qivxkgpbfp33%12/17/2024 12:23 AM CDTInhaled Oxygen Concentration--Nskxgo66.6 kg (151 lb 3.8 oz)12/17/2024 12:23 AM NVBXcjyaq583.9 cm (5' 1)12/08/2024 6:31 PM CDTBody Mass Index28.58 12/08/2024 6:31 PM CDT Plan of Treatment Health MaintenanceDue DateLast DoneCommentsPap Smear1992Medicare Annual Wellness Visit (AWV)2010Pneumococcal Vaccine: Pediatrics (0 to 5 Years) and At-Risk Patients (6 to 49 Years) (1 of 2 - PCV)08/11/2011DTaP,Tdap,and Td Vaccines (8 - Td or Tdap), 12/28/2005, 12/08/1997, Additional history existsCOVID-19 Vaccine (3 - season)2024 09/04/2020, 07/30/2020Influenza Vaccine (#1), 02/08/2013, 01/14/2009, Additional history existsHPV TrukkdcqMigwhzimt26/05/2007, 11/27/2006, 09/15/2006 Insurance [id number] [place] [phone] [place] [phone] Care Teams Team MemberRelationshipSpecialtyStart DateEnd Date None, Pcp [address] [place] [phone] [facility]CP - [facility]12/03/24
--- OUTSIDE RECORDS SUMMARY | 2025-04-29 21:30 | XMS_ITS | Clinical Summary ---
Author Organization [facility] Address [address] [place] [address] Care Team Providers Care Manager Imaging Name Role Phone None Reported, Pcp Primary Care Provider Unavail able Source Comments Patient records contain information from all sites at [facility]. For routine questions regarding patient records, call [phone] during business hours, M-F 8:00 AM - 5:00 PM Central Time. Record requests for emergency care only can be directed to [phone] at any time.[facility] Allergies Active AllergyReactionsCriticalityNoted DateCommentsAripiprazoleRash,Swelling High09/10/2013LamotrigineRash,Nausea And Vomiting,Swelling,GI intoleranceHigh 09/10/2013MiconazoleRash,TfvxljikZezz86/13/2014TioconazoleHallucinationsMedium 02/13/2020SertralineAnxiety,IxubjlsryrncwgVheh53/23/2023 Medications * This document contains information received from the source organization and may not represent a complete record from that organization. MedicationSigDispense QuantityRefillsLast FilledStart DateEnd DateStatus acetaminophen (TYLENOL) 500 mg tablet Take 500-1,000 mg by mouth every 6 (six) hours as needed for pain.11/24/2022 Active albuterol 90 mcg/actuation inhaler Inhale 2 puffs every 4 (four) hours as needed.Active Qulipta 60 mg tablet tablet Take 60 mg by mouth daily.07/19/2023ctive escitalopram (LEXAPRO) 5 mg tablet Take 5 mg by mouth daily.Active ferrous sulfate 325 mg (65 mg iron) tablet Take 325 mg by mouth daily.Active lurasidone (LATUDA) 80 mg tablet Take 80 mg by mouth at bedtime.02/22/2024Active ondansetron ODT (ZOFRAN-ODT) 4 mg disintegrating tablet Dissolve 4 mg in the mouth every 8 (eight) hours as needed for nausea or vomiting.08/03/2023ctive OXcarbazepine (TRILEPTAL) 150 mg tablet Take 150 mg by mouth 2 (two) times a day.Active SUMAtriptan (IMITREX) 50 mg tablet Take 50 mg by mouth as needed for migraine.06/19/2023ctive topiramate (TOPAMAX) 25 mg tablet Take 25 mg by mouth 2 (two) times a day.09/01/2022ctive traZODone (DESYREL) 50 mg tablet Take 25 mg by mouth at bedtime.Active cetirizine (ZyrTEC) 10 mg tablet Take 10 mg by mouth daily.05/04/2020ctive cholecalciferol (Vitamin D3) 125 mcg (5,000 Unit) capsule Take 125 mcg by mouth daily.04/10/2020Active RANITIDINE HCL ORAL Take 150 mg by mouth 2 (two) times a day.08/01/2020ctive phentermine (Adipex-P) 37.5 mg tablet Take 37.5 mg by mouth daily before morning meal.Active phentermine (Adipex-P) 37.5 mg capsule Take 37.5 mg by mouth daily before morning meal.Active ondansetron (Zofran) 4 mg tablet Take 4 mg by mouth every 6 (six) hours as needed for vomiting or nausea.Active Nyamyc 100,000 unit/gram powder Apply 1 Application topically 2 (two) times a day.04/26/2024ctive montelukast (Singulair) 10 mg tablet Take 10 mg by mouth at bedtime.03/18/2020Active Emgality Pen 120 mg/mL injection Inject 120 mg under the skin every 30 (thirty) days.03/05/2024ctive fluconazole (Diflucan) 150 mg tablet Take 150 mg by mouth every 7 (seven) days. For 2 doses02/26/2024ctive phentermine (Adipex-P) 37.5 mg tablet Take 37.5 mg by mouth daily before morning meal.06/27/2023ctive triamcinolone (Kenalog) 0.1 % cream Apply 1 Application topically 2 (two) times a day as needed for irritation or rash. To Back03/06/2024ctive valACYclovir (Valtrex) 1000 mg tablet Take 1 tablet by mouth 3 (three) times a day with meals.03/08/2024ctive escitalopram (Lexapro) 10 mg tablet Take 1 tablet by mouth daily.04/14/2024ctive Social History Tobacco UseTypesPacks/DayYears UsedDateSmoking Tobacco: NeverSmokeless Tobacco: Never Tobacco Cessation:Counseling Given: Not Answered Alcohol UseStandard Drinks/WeekCommentsNot Currently0 (1 standard drink = 0.6 oz pure alcohol)[facility] UtilitiesAnswerDate RecordedIn the past 12 months has the [employer], gas, oil, or water [employer] threatened to shut off services in your home?No07/15/2024Hunger Vital SignAnswerDate RecordedWithin the past 12 months, you worried that your food would run out before you got the money to buymore. Never true07/15/2024Within the past 12 months, the food you bought just didn't last and you didn't have money to get more.Never true07/15/2024PRAPARE - TransportationAnswerDate RecordedIn the past 12 months, has lack of transportation kept you from medical appointments or from getting medications?No 07/15/2024In the past 12 months, has lack of transportation kept you from meetings, work, or from getting things needed for daily living?No07/15/2024 Housing StabilityAnswerDate RecordedWhat is your living situation today?I have a steady place to live07/15/2024CommentsNoSex and Gender InformationValue Date RecordedSex Assigned at SyghlGjelgy10/17/2025 5:27 PM CDTLegal SexFemale 09/07/2023 10:10 PM CDTGender VobrtagpUjosdq67/17/2025 5:27 PM CDTSexual OrientationNot on file Last Filed Vital Signs Vital SignReadingTime TakenCommentsBlood Lrrjlkxo621/65008/09/2024 12:00 AM CDT Neadx6361/11/2025 12:00 AM ATKYdqhfnnpwya29.6 ??C (97.9 ??F)08/08/2024 7:48 PM CDTRespiratory Octv484608/09/2024 12:43 AM CDTOxygen Bqeddmojbx46%08/09/2024 12:00 AM CDTInhaled Oxygen Concentration--Qimigv19.3 kg (161 lb 9.6 oz)06/29/2024 7:25 AM CSTHeight--Body Mass Index-- Plan of Treatment Health MaintenanceDue DateLast DoneCommentsCervical/Vaginal Cancer Screening 1992HIV Ttzvkchnr85/12/1993Hepatitis C Zpvmxjawj64/12/1993IPV Vaccines (4 of 4 - 4-dose series), 1992, 1992DTaP,Tdap,and Td Vaccines (8 - Td or Tdap)/, 12/28/2005, 12/08/1997, Additional history existsDepression Screening (Annual PHQ-2)05/01/2024OVID-19 Vaccine ( season)/10/2020, 07/30/2020Influenza Vaccine (#1)/03/2013, 01/14/2009, 03/04/2008, Additional history exists Glucose Test for Med Lijltgahvj01/08/202610/11/2024, 12/08/2024, 08/14/2024, Additional history existsHepatitis B ZhrvdcxsMxivgqvcb35/08/1993, 1992, 1992HPV DuoasthpVwkcsdyeo57/05/2007, 11/27/2006, 09/15/2006Pneumococcal vaccine (0-49 years)Aged OutNo longer eligible based on patient's age to complete this topic Procedures Procedure NamePriorityDate/TimeAssociated DiagnosisCommentsBASIC METABOLIC PANEL, S/PSTAT08/08/2024 8:53 PM CDT from Last 3 Months or Most Recently Relevant to Health Maintenance Insurance Care Teams Team MemberRelationshipSpecialtyStart DateEnd Date None Reported, Pcp PCP - Generalmily Medicine12/25/24
--- OUTSIDE RECORDS SUMMARY | 2025-04-29 21:30 | XMS_ITS | Clinical Summary ---
Author Organization [facility] Address [address] [place] [address] Care Team Providers Care Field Service Consultant Name Role Phone Alba Erickson DO Primary Care Provid er Allergies Active AllergyReactionsCriticalityNoted DateCommentsAripiprazole*Unknown - Follow up needed,Rash,Edema,*GfowqhzUbfw56/13/2014 Other Reaction(s): Rash, Swelling/Edema LamotrigineEdema,*Unknown,Nausea And Vomiting,Rash,Throat Swelling/ClosingHigh 09/10/2013 Other Reaction(s): Rash, Swelling/Edema Other Reaction(s): Edema, GI intolerance, Unknown Other Reaction(s): Rash, Swelling/Edema Miconazole*Unknown - Follow up needed,Edema,Rash,*PctlhboLgnc46/13/2014 Other Reaction(s): Rash, Swelling/Edema SertralineAgitation,Anxiety,Hallucinations,Hives,Other - Describe In Comment Field,Rash,Shortness Of NrjdvlRgzr36/13/2014 Mom reports she became psychotic on zoloft Anxiety, hallucinations Other Reaction(s): Agitation Mom reports she became psychotic on zoloft Anxiety, hallucinations Medications MedicationSigDispense QuantityRefillsLast FilledStart DateEnd DateStatus escitalopram oxalate (LEXAPRO) 10 mg tablet Take 10 mg by mouth.04/14/2024ctive atogepant (Qulipta) 60 mg tablet Take 60 mg by mouth.4Active galcanezumab-gnlm (Emgality Pen) 120 mg/mL pen Inject subcutaneous once a month.4Active hydrOXYzine HCL (ATARAX) 25 mg tablet 5Active lurasidone 60 mg tab take one tablet by mouth every day with breakfastActive OXCARBAZEPINE ORAL Take 300 mg by mouth.06/27/2023ctive nystatin powder (MYCOSTATIN) powder Apply topically to affected area(s).04/26/2024ctive triamcinolone (ARISTOCORT; KENALOG) 0.1 % cream Apply 1 Application topically to affected area(s).03/06/2024ctive traZODone (DESYREL) 100 mg tablet Take 100 mg by mouth two times daily.Active albuterol HFA (PRO-AIR; VENTOLIN; PROVENTIL) 90 mcg/actuation inhaler Indications:Mild persistent asthma without complication (HC)Inhale 2 Puffs by mouth every 6 hours if needed for Shortness Of Breath or Wheezing. prn 1 Each tive ondansetron (ZOFRAN ODT) 4 mg disintegrating tablet Indications:NauseaPlace 1 Tablet (4 mg) on the tongue every 8 hours if needed for Nausea/Vomiting. 30 Tablet 5Active semaglutide (Ozempic) 1 mg/dose (4 mg/3 mL) subcutaneous pen Inject 0.8 mg subcutaneous once weekly.Active Active Problems ProblemNoted DateDiagnosed DateH/O gastric sqbcnh5402/05/2025ipolar 1 disorder 01/31/2025Mild persistent asthma without mknhzemjqaez05/03/2025Skin-picking disorderOCD (obsessive compulsive disorder)Ectopic Overview (02/05/2025): 2018 - tubal ligation after BPD (bronchopulmonary dysplasia)Autism spectrum disorder Encounters DateTypeDepartmentCare MajiHurjdxrxffh24/31/1178Mpxfyu97/20/2025Telephone [facility] [address] [place] [address] Courtney Gonzalez, RN Care Coordination (TMS)02/11/20254150Ucxham27/08/2025 9:25 AM CDTOffice Visit [facility] [address] [place] [address] Alba Erickson, UTI (burning w/ urination and intercourse, dysuria, itching, raw feeling x 4 days); [employer] Turner Exam02/05/20255954Cbhuaa00/06/0539Yazvqt65/03/2025 9:55 AM CDTOffice Visit [facility] [address] [place] [address] Alba Erickson, Establish Care; Weight (weight fluctuation ); Medication Management (and refills)01/30/2025Travelfrom Last 3 Months Immunizations ImmunizationAdministration DatesNext DueCOVID-19 vaccine (RidePost 30mcg/0.3mL) PF, MDV04/2332VJD6606/15/1994,03/08/1993,1992,1992 Dtap-5 Pertussis Hahrhsdl16/10/1998HIB PRP-T (ActHIB,Hiberix)06/15/1994, 03/08/1993,1992,1992Hepatitis B (Adult)03/08/1993,1992, 1992Human Papilloma Virus Fvctvel4604/04/2007,11/27/2006,09/15/2006 Inactivated Polio Mxgkjki5803/08/1993,1992,1992MMR12/08/1997, 06/15/1996,06/15/1994Meningococcal Vaccine (Menactra)01/23/2006Oral Polio Bdmqwwb3712/08/1997,03/08/1993,1992,1992Tdap07/19/2013,12/28/2005, 06/15/1994,03/08/1993,1992,1992 Family History Medical HistoryRelationNameCommentsCerebral palsyBrotherDied of sepsis from port Anxiety disorderFatherAutismFatherOCDFatherODDFatherBrain cancerMaternal GrandfatherDiabetesMaternal GrandfatherDiabetesMaternal GrandmotherPersonality disorderMaternal GrandmotherSchizophreniaMaternal GrandmotherAnxiety disorder MotherBipolar disorderMotherDepressionMotherAutism spectrum disorderSonOCDSon Picking DisorderSonRelationNameStatusCommentsBrotherDeceasedFatherAliveMaternal GrandfatherDeceasedMaternal GrandmotherDeceasedMotherAliveSonAlive Social History Tobacco UseTypesPacks/DayYears UsedDateSmoking Tobacco: NeverSmokeless Tobacco: Never Tobacco Cessation:Counseling Given: Not Answered PHQ-2AnswerDate RecordedPHQ-2 TOTAL [id number] ConnectionsAnswerDate RecordedDo you often feel lonely or isolated from those around you? Alcohol UseAnswerDate RecordedHow often do you have a drink containing alcohol?0 02/05/2025How many drinks containing alcohol do you have on a typical day when you are drinking?How often do you have five or more drinks on one occasion?Financial Resource StrainAnswerDate RecordedDifficulty of Paying Living Mxnfdwgb958/02/2025Difficulty of Paying Living ExpensesNot on file 01/30/2025Food InsecurityAnswerDate RecordedDo you worry your food will run out before you are able to buy more?Transportation NeedsAnswerDate RecordedDoes lack of transportation keep you from medical appointments?1 01/30/2025Does lack of transportation keep you from work, meetings or getting things that you need?Housing StabilityAnswerDate RecordedWhat is your housing situation today?UtilitiesAnswerDate RecordedDo you have trouble paying for utilities (for example, heat, electricity, water, phone)?1 01/30/2025CommentsNoSex and Gender InformationValueDate RecordedSex Assigned at BirthNot on fileLegal VyxCtyzqt08/29/2025 12:56 PM CDTGender IdentityNot on fileSexual OrientationNot on file Last Filed Vital Signs Vital SignReadingTime TakenCommentsBlood Rwdvvxtc789/7202/05/2025 9:38 AM CDT Cvbbo780602/05/2025 9:38 AM CDTTemperature--Respiratory Rate--Oxygen Dxlexlfjhn67% 02/05/2025 9:38 AM CDTInhaled Oxygen Concentration--Safjhf07.7 kg (158 lb 1.6 oz)02/05/2025 9:38 AM KCQKvyrfq985 cm (5' 3)01/31/2025 10:09 AM CDTBody Mass Index28.011 10:09 AM CDT Plan of Treatment Health MaintenanceDue DateLast DoneCommentsHIV for age 15-Hepatitis C screening for age 18-7908/10/2010Pap test for age 21-Tetanus /, 12/28/2005, 06/15/1994, Additional history exists COVID-19 vaccine series (2024- season)/10/2020, 07/30/2020 Influenza Vaccine (#1)2024MI (ht and wt on same day) for age 18+ Depression screening for age 12+ Hepatitis B series for 19+Uveuqjhnx53/08/1993, 1992, 1992HPV series for age 9-15Csisiszxk55/05/2007, 11/27/2006, 09/15/2006Pneumococcal series for age 6-49Aged OutNo longer eligible based on patient's age to complete this topic Procedures Procedure NamePriorityDate/TimeAssociated DiagnosisCommentsCOMP METABOLIC PANEL Qobqfun1802/05/2025 10:21 AM CDT Bilirubin in urine TRICHOMONAS, SUZAN, AND BACTERIAL VAGINOSIS BY FAYWzkfajz11/08/2025 10:15 AM CDT Vaginal candidiasis Vaginal pruritus GC CHLAMYDIA TRACH IXORUEgjtoxz83/08/2025 10:15 AM CDT Vaginal pruritus URINE CULTUREAdd On02/05/2025 9:27 AM CDT UTI symptoms URINALYSIS MACROSCOPIC - [facility] ONLY POC DIP ([facility])Dadyzvk3402/05/2025 9:27 AM CDT UTI symptoms from Last 3 Months Results * COMP METABOLIC PANEL (02/05/2025 10:21 AM CDT)ComponentValueRef RangeTest MethodAnalysis TimePerformed AtPathologist UmdpcwtkvNZLBMC579724 - 146 mmol/L 02/06/2025 9:10 AM CDTQUEST DIAGNOSTICSPOTASSIUM3.93.5 - 5.3 mmol/L1 9:10 AM CDTQUEST QYZBKHOPAUTBFGEWHWQ04941 - 110 mmol/L1 9:10 AM CDT [facility]AGNOSTICSCARBON VHVENBH7519 - 32 mmol/L1 9:10 AM CDTQUEST JARYIPJKAPYVWLLXFV4364 - 99 mg/dL02/06/2025 9:10 AM CDT[facility] Comment: ? Fasting reference interval CALCIUM9.18.6 - 10.2 mg/dL02/06/2025 9:10 AM CDTQUEST DIAGNOSTICSCREATININE0.72 0.50 - 0.97 mg/dL02/06/2025 9:10 AM CDTQUEST DIAGNOSTICSBUN/CREATININE RATIOSEE NOTE:6 - 22 (calc)02/06/2025 9:10 AM CDTQUEST DIAGNOSTICSComment: ?? Not Reported: BUN and Creatinine are within ?? reference range. ? ITZL996> OR = 60 mL/min/1.56f61702/06/2025 9:10 AM CDTQUEST DIAGNOSTICSALBUMIN4.3 3.6 - 5.1 g/dL02/06/2025 9:10 AM CDTQUEST DIAGNOSTICSPROTEIN, TOTAL6.96.1 - 8.1 g/dL02/06/2025 9:10 AM CDTQUEST DIAGNOSTICSBILIRUBIN, TOTAL0.40.2 - 1.2 mg/dL 02/06/2025 9:10 AM CDTQUEST DIAGNOSTICSALKALINE NBWXXRPFETF8950 - 125 U/L 02/06/2025 9:10 AM CDTQUEST PWURQENMQEOTJQ50 - 29 U/L1 9:10 AM CDTQUEST JDKYIEAOAWUXOM3457 - 30 U/L1 9:10 AM CDTQUEST DIAGNOSTICSUREA NITROGEN (BUN)157 - 25 mg/dL02/06/2025 9:10 AM CDTQUEST DIAGNOSTICSGLOBULIN2.61.9 - 3.7 g/dL (calc)02/06/2025 9:10 AM CDTQUEST DIAGNOSTICSALBUMIN/GLOBULIN RATIO1.71.0 - 2.5 (calc)02/06/2025 9:10 AM CDTQUEST DIAGNOSTICSSpecimen (Source)Anatomical Location / LateralityCollection Method / VolumeCollection TimeReceived TimeBlood BLOOD SPECIMEN / UnknownNon-Lab Venipuncture / Mskmxcy4902/05/2025 10:21 AM CDT 02/05/2025 10:21 AM CDT Narrative Authorizing ProviderResult TypeResult StatusAlba Camaraarvinkarina DOCHEMISTRY Final ResultPerforming OrganizationAddressCity/State/ZIP CodePhone Number [employer] [facility] [address] [place] [address], * (ABNORMAL) TRICHOMONAS, SUZAN, AND BACTERIAL VAGINOSIS BY SHASHANK (02/05/2025 10:15 AM CDT)ComponentValueRef RangeTest MethodAnalysis TimePerformed At Pathologist SignatureCANDIDA ZAJTCWDCdghfhdeGuvjcyvk83/08/2025 8:11 PM CDT [facility] LABORATORYCANDIDA GLABRATANegativeNegative 02/05/2025 8:11 PM CDALL[facility]ENTERCENTRAL LABORATORYTRICHOMONAS AKJCeuvxahtQsrregyn74/08/2025 8:11 PM [facility]ENTRAL LABORATORYBACTERIAL VAGINOSISPositive(A)Xooapzrs97/08/2025 8:11 PM CDALL[facility] HEALTH CENTERCENTRAL LABORATORYSpecimen (Source)Anatomical Location / LateralityCollection Method / VolumeCollection TimeReceived TimeOtherVAGINAL SWAB / UnknownNon-Blood / Zdxzkap4302/05/2025 10:15 AM CDT1 10:21 AM CDT Narrative Authorizing ProviderResult TypeResult StatusClivereyesgabrielle Dang Georgina DO MICROBIOLOGYFinal ResultPerforming OrganizationAddressCity/State/ZIP CodePhone Number [facility] [address] [place] [address], * GC & CHLAMYDIA DNA PCR [[id number]] (02/05/2025 10:15 AM CDT)ComponentValueRef RangeTest MethodAnalysis TimePerformed AtPathologist SignatureCHLAMYDIA PROBE Negative 02/05/2025 8:23 PM CDALL[facility] HEALTH CENTERCENTRAL LABORATORYN GONORRHOEAE PROBENegative 02/05/2025 8:23 PM [facility] CENTRAL LABORATORYSpecimen (Source)Anatomical Location / LateralityCollection Method / VolumeCollection TimeReceived TimeOtherVAGINAL SWAB / UnknownNon- Blood / Tanfcmh5702/05/2025 10:15 AM CDT1 10:21 AM CDT Narrative Authorizing ProviderResult TypeResult StatusJacsydnee Erickson DO MICROBIOLOGYFinal ResultPerforming OrganizationAddressCity/State/ZIP CodePhone Number [facility] [address] [address], * (ABNORMAL) URINALYSIS MACROSCOPIC - [facility] ONLY POC DIP ([facility]) (02/05/2025 9:27 AM CDT)ComponentValueRef RangeTest MethodAnalysis Time Performed AtPathologist SignatureCOLORYellowYellow Color02/05/2025 9:30 AM CDT [facility] ARDMORECLARITYClearClear Fcmrlsw6202/05/2025 9:30 AM [facility] TULSAPECIFIC GRAVITY,URINE>=1.030(A) 1.010, 1.015, 1.020, 1.1586202/05/2025 9:30 AM [facility]APH,URINE5.56.0, 7.0, 8.0, 5.5, 6.5, 7.5, 8. 9:30 AM [facility] TULSAUROBILINOGEN,QUALITATIVENormalNormal EU/dl 02/05/2025 9:30 AM [facility] TULSAPROTEIN, URINETrace (A)Negative mg/dL02/05/2025 9:30 AM [facility] GLUCOSE, URINENegativeNegative mg/dL02/05/2025 9:30 AM [facility] TULSAKETONES,URINE15(A)Negative mg/dL02/05/2025 9:30 AM CDT [facility] ARDMOREBILIRUBIN,URINEAbnormal(A)Negative 02/05/2025 9:30 AM [facility]SA[facility]CCULT BLOOD,URINE JrpsdfmsDahouhvo62/08/2025 9:30 AM [facility] UAFDMNZKaqavfgqFdcrfpgp41/08/2025 9:30 AM [facility] TULSALEUKOCYTE UQZURELUZfmpenhvGgzgbhre09/08/2025 9:30 AM [facility] TULSApecimen (Source)Anatomical Location / Laterality Collection Method / VolumeCollection TimeReceived TimeUrineURINE SPECIMEN / UnknownNon-Blood / Bqwebye7102/05/2025 9:27 AM CDT1 9:27 AM CDT Narrative Authorizing ProviderResult TypeResult StatusCliveeaton rapids medical center Dang Mii DOURINE Final ResultPerforming OrganizationAddressCity/State/ZIP CodePhone Number [facility] [address] [place] [address], * URINE CULTURE (02/05/2025 9:27 AM CDT)ComponentValueRef RangeTest Method Analysis TimePerformed AtPathologist SignatureCULTURENo growth (<1,000 CFU/mL) 02/06/2025 5:31 PM [facility]ERCENTRAL LABORATORYSpecimen (Source)Anatomical Location / LateralityCollection Method / VolumeCollection TimeReceived TimeUrineURINE SPECIMEN / UnknownNon-Blood / Tfsintl0502/05/2025 9:27 AM CDT1 9:27 AM CDT Narrative Authorizing ProviderResult TypeResult StatusClivereyesnantucket cottage hospital Dang Mii DO MICROBIOLOGYFinal ResultPerforming OrganizationAddressCity/State/ZIP CodePhone Number [facility] [address] [place] [phone], from Last 3 Months Insurance Care Teams Team MemberRelationshipSpecialtyStart [place] [address] [place] [address] PCP - GeneralFamily Sgnguaha90/3/25
[2025-04-29 21:47] VITALS: BP 100/70; PULSE 70; RESP 16; TEMP 36.6; O2SAT 98; BMI 26.8
--- NOTE | 2025-04-29 21:57 | CRLHL7_ITS ---
For Patients: As a result of the Century Cures Act, medical imaging exams and procedure reports are released immediately into your electronic medical record. You may view this report before your referring provider. If you have questions, please contact your health care provider. INDICATION: Trauma, fall. TECHNIQUE: CT head without contrast. COMPARISON: None. FINDINGS: CSF spaces: Within normal limits for age. Brain parenchyma: The branch-white differentiation is maintained. No evidence of intracranial hemorrhage, extra-axial collection, or midline shift. Skull base and calvarium: The visualized paranasal sinuses and mastoid air cells demonstrate no acute or significant findings. The visualized orbits are grossly unremarkable. No skull fractures. IMPRESSION: No acute intracranial abnormality. Please note that all CT scans at this facility use dose modulation, iterative reconstruction, and/or weight-based dosing when appropriate to reduce radiation dose to as low as reasonably achievable. Dictated by Vijay Diez MD @ 04/29/2025 10:47:21 PM (Electronically Signed)
--- NOTE | 2025-04-29 23:13 | ED.GENADULT ---
HPI - General Adult General Date Seen: 04/29/25 Chief complaint: Fall/Minor Trauma Stated complaint: Fell and hit head. Time Seen by Provider: 04/29/25 22:40 History of Present Illness HPI narrative: Tooth 34-year-old female with a past medical history of previous concussions and TBIs, depression/anxiety, presenting to the ER today with her boyfriend. She slipped and fell on the slippery parking lot outside [employer] this afternoon at about 2:00 p.m. prior to going to work. She landed with her left side of her head striking the edge of the cement curb. Since then she has been having a headache in the left postauricular area radiating on the left lateral side of her neck in the top her shoulder. No numbness or weakness down her arms. No back pain. She was not knocked out but has had persistent headache. She has been nauseous and threw up a couple of times. 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 She after finishing work she came here to the ER. She is requesting some Toradol for pain because the Tylenol she had taken earlier is not helping. She has a history of gastric sleeve surgery so he cannot take oral NSAIDs. Related Data Home Medications ?Medication ?Instructions ?Recorded ?Confirmed lurasidone 20 mg tablet (Latuda) 60 mg PO DAILY 01/24/25 04/29/25 oxcarbazepine 150 mg tablet 300 mg PO DAILY 01/24/25 04/29/25 trazodone 50 mg tablet 100 mg PO DAILY 01/24/25 04/29/25 albuterol sulfate 90 mcg/actuation 2 puff inhalation Q6H PRN wheezing 02/11/25 02/11/25 aerosol inhaler hydroxyzine HCl 25 mg tablet 25 mg PO DAILY PRN anxiety 02/11/25 04/29/25 paroxetine HCl 30 mg tablet 30 mg PO DAILY 04/29/25 04/29/25 Allergies Allergy/AdvReac Type Severity Reaction Status Date / Time sertraline Allergy Unknown Verified 04/29/25 21:53 myconazole Allergy Mild Rash Uncoded 02/11/25 10:29 PFSH PFSH Social History Smoking Status: Never smoker How often do you have a drink containing alcohol: never AUDIT-C Alcohol total score: 0 Non-prescribed substance use: marijuana (any form) Exam Narrative: Exam Narrative: Constitutional: Appears well-developed and well-nourished. Alert. Conversant. Non toxic. Lying back in bed but sits up and is conversant for exam. HENT: Head: Atraumatic. No depressed skull fracture, Raccoon Eyes, Quiroga's sign, or hemotympanum. Face normal. TMs normal Nose: Nose normal. Mouth/Throat: Oral mucosa is clear . Mucous membranes are moist. no trismus. Pharynx normal. Tonsils symmetric. No tonsillar enlargement, erythema, or exudate. Eyes: Conjunctivae normal. EOM normal. Pupils equal, round, and reactive to light. No scleral icterus. Neck: Normal range of motion. Neck supple. No tracheal deviation present. She has left lateral chest tenderness and tenderness across the muscular trapezius ridge. No bony tenderness over the midline. Cardiovascular: Normal rate, regular rhythm. No gallop. No friction rub. No murmur heard. Pulmonary/Chest: Effort normal. No stridor. No respiratory distress. No wheezes. No rales. No rhonchi . No ribcage tenderness. Musculoskeletal: RUE: Normal range of motion. No tenderness. No deformity LUE: Normal range of motion but complains of pain in her left trapezius when she she abducts her arm. No bony tenderness of the clavicle, scapula, humeral head, humeral shaft, elbow, forearm, wrist, hand.. No tenderness. No deformity RLE: Normal range of motion. No edema. No tenderness. No deformity LLE: Normal range of motion. No edema. No tenderness. No deformity Lymph: No cervical adenopathy. Neurological: Mental status normal. Attention normal. Alert and oriented x3. GCS 15. Memory normal. Speech fluent. Cognition normal. Cranial Nerves intact II-XII except I did not formally test gag or visual acuity. EOMI. Palate elevates symmetrically and tongue protrudes in the midline. Strength: 5/5 trapezius on the right and left 5/5 deltoid on the right and left 5/5 biceps on the right and left 5/5 triceps on the right and left 5/5 psychology fellow on the right and left 5/5 thumb opposition on the right and left 5/5 finger abduction on the right and left 5/5 hip flexors (L3) on the right and left 5/5 quadriceps (L4) on the right and left 5/5 tibialis anterior on the right and left 5/5 EHL (L5) on the right and left 5/5 gastrocnemius (S1) on the right and left 5/5 hamstring on the right and left Sensation intact to light touch in both upper extremities (C4-T1) Sensation intact to light touch in Both lower extremities (L4-S1). Finger to nose and coordination normal. Gait normal. Skin: Skin is warm and dry. No rash noted. No pallor. Normal capillary refill. Psychiatric: Normal mood. Normal affect. Const: Vital Signs, click to edit/add: Vital Signs - 24 hr 04/29/25 21:47 Temperature 97.8 F Pulse Rate [Pulse Oximeter] 70 Respiratory Rate 16 Blood Pressure [Ri ght Upper Arm] 100/70 Pulse Oximetry 98 Oxygen Delivery Me thod Room Air Course Vital Signs Vital signs: Initial Vital Signs Temperature 97.8 F 04/29/25 21:47 Temperature Source Temporal Artery Scan 04/29/25 21:47 Pulse Rate 70 04/29/25 21:47 Respiratory Rate 16 04/29/25 21:47 Blood Pressure 100/70 04/29/25 21:47 Blood Pressure Mean 80 04/29/25 21:47 Pulse Oximetry 98 04/29/25 21:47 Oxygen Delivery Method Room Air 04/29/25 21:47 Vital Signs Temperature 97.8 F 04/29/25 21:47 Pulse Rate 70 04/29/25 21:47 Respiratory Rate 16 04/29/25 21:47 Blood Pressure 100/70 04/29/25 21:47 Pulse Oximetry 98 04/29/25 21:47 Oxygen Delivery Method Room Air 04/29/25 21:47 Temperature 97.8 F 04/29/25 21:47 Pulse Rate 70 04/29/25 21:47 Respiratory Rate 16 04/29/25 21:47 Blood Pressure 100/70 04/29/25 21:47 Pulse Oximetry 98 04/29/25 21:47 Oxygen Delivery Method Room Air 04/29/25 21:47 Medications Administered Medications: Discontinued Medications Generic Name Dose Route Start Last Admin Trade Name Freq PRN Reason Stop Dose Admin Ketorolac Tromethamine 30 mg 04/29/25 23:11 04/29/25 23:18 Ketorolac 30 Mg/Ml Inj IM 04/29/25 23:12 30 mg ONCE ONE Administration Medical Decision Making MDM Narrative Medical decision making narrative: This patient presents with blunt head trauma, after she slipped and fell on the icy/[place] curb [place] [employer] this afternoon before going to work. Differential includes intracranial injuries (e.g. skull fracture, epidural hematoma, subdural hematoma, intracerebral hemorrhage, and traumatic subarachnoid hemorrhage), verses concussion or other traumatic brain injury. CT imaging was obtained and fortunately was normal. At this time it appears that the patient's symptoms are due to a concussion. The patient/family understand that they must return if any red flags appear/develop in the coming hours/days, as this may represent an indication to perform a repeat CT scan or further evaluation. I have noted that red flags include: headaches that get worse, increased drowsiness, strange behavior, repetitive speech, seizures, repeated vomiting, growing confusion, increased irritability, slurred speech, weakness or numbness, and loss of responsiveness. This information will also be provided in writing at discharge. I have discussed the second impact syndrome, and the importance of not sustaining repeated concussion in the next 1-2 weeks. Post concussive syndrome is also discussed. She has had multiple TBIs over the years so I have concerned that she might have a prolonged post concussive course. She is also having pain in her left lateral neck and the top of her left shoulder. 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 At this point based on clinical grounds I think there is very low likelihood of her shoulder fracture. Consider possible C-spine injury but she is not having any posterior midline tenderness or step-off. At this point I think that the risk of radiation would outweigh the benefit of C-spine CT. She received Toradol IM for her pain here in the ER. She feels comfortable discharging home with her boyfriend. She is encouraged to follow-up with her PCP for recheck. Discharge Plan Discharge Clinical Impression: Concussion, Acute pain of left shoulder Patient Disposition: Home, Self-Care Condition: Stable Instructions: Concussion (ED), Shoulder Pain (ED) Additional Instructions: As we discussed, please follow-up with your regular doctor as soon as you are able, ideally within 1 week to recheck. Symptoms of a concussion can last for sometimes days or weeks after an injury. You should avoid dangerous activities that might lead to more head injuries or other activities such as strenuous physical activity that might worsen your symptoms. Activity Level: No Restrictions Discharge Diet: Regular Prescriptions: No Action hydroxyzine HCl 25 mg tablet 25 mg PO DAILY PRN (Reason: anxiety) albuterol sulfate 90 mcg/actuation HFA aerosol inhaler 2 puff INHALATION Q6H PRN (Reason: wheezing) trazodone 50 mg tablet 100 mg PO DAILY oxcarbazepine 150 mg tablet 300 mg PO DAILY lurasidone [Latuda] 20 mg tablet 60 mg PO DAILY Rx Instructions: must administer with food (at least 350 calories) paroxetine HCl 30 mg tablet 30 mg PO DAILY Follow Up/Referrals: Provider,Not a Local [Primary Care Provider, Family Practice] Stand Alone Forms: Work/School Release, [facility] Info Instructions
== END 2025-04-29 23:23 | disposition home or self-care (01) ==
PROVIDERS: Emergency Provider Emergency Medicine
DX: S06.0X0A Concussion without loss of consciousness, initial encounter (principal); M25.512 Pain in left shoulder; W00.0XXA Fall on same level due to ice and snow, initial encounter; Y93.01 Activity, walking, marching and hiking; Y92.481 Parking lot as the place of occurrence of the external cause
CPT/HCPCS: 70450; 96372; 99283; 99284; J1885